=== PATIENT | male | born 1950 | race Caucasian/White ===

== ENCOUNTER 2018-03-26 17:34 | Inpatient (IN) | payer MEDICARE, OTHER ==
[~2018-03-26] VITALS: Ht 167.6 cm; Wt 78.0 kg
--- NOTE | 2018-03-26 17:48 | NUR ---
PT TO ED DT LFT GREAT TOE OPEN WOUND X 2 WEEKS, PATIENT IS COMPLAINIGN OF 8/10 PAIN.PATIENT IS AFEBRILE.VSS
--- NOTE | 2018-03-26 17:52 | NUR ---
CALLED "[facility]" AND SPOKE WITH ZAIDA. PER ZAIDA DAVISON SAW PATIENT AND IS UNABLE TO PROVIDE MORE INFORMATION. SHE SAID SHE WILL TRY TO REACH DR DAVISON FOR A CALL BACK BUT HE IS NOT CURRENTLY AVAILABLE.
[2018-03-26 18:10] LABS: BASOPHILS # (AUTO) 0.1 /CMM (0.0-0.2); BASOPHILS % (AUTO) 0.7 % (0.0-2.0); EOSINOPHILS % (AUTO) 1.2 % (0.0-6.0); HEMATOCRIT 43 % (39-51); HEMOGLOBIN 14.7 g/dL (13.5-17.5); LYMPHOCYTES # (AUTO) 4.2 /CMM (0.8-4.8); LYMPHOCYTES % (AUTO) 35.2 % (20.0-44.0); MEAN CORPUSCULAR HEMOGLOBIN 30 PG (26.0-33.0); MEAN CORPUSCULAR HGB CONC 34 g/dl (31.0-36.0); MEAN CORPUSCULAR VOLUME 89 fL (80-96); MONOCYTES # (AUTO) 0.6 /CMM (0.1-1.30); MONOCYTES % (AUTO) 4.7 % (2.0-12.0); NEUTROPHILS # (AUTO) 6.9 /CMM (1.8-8.9); NEUTROPHILS % (AUTO) 58.2 % (43.0-81.0); PLATELET COUNT (AUTO) 188 /CMM (150-450); RDW COEFFICIENT OF VARIATION 13.9 (11.5-15.0); RED BLOOD CELL COUNT(AUTO) 4.89 MIL/uL (4.5-6.0); WHITE BLOOD COUNT (AUTO) 11.9 K/uL (4.3-11.0)
[2018-03-26 18:29] LABS: CALCIUM, SERUM 8.6 mg/dL (8.5-10.1); CREATININE 0.8 mg/dL (0.6-1.3); POTASSIUM 3.6 mmol/L (3.5-5.1)
[2018-03-26] MEDS ORDERED: PIPERACILLIN /TAZOBACTAM 3.375 G in IV D5W 50 ML IV ONE (18:30)
[2018-03-26] MEDS ORDERED: VANCOMYCIN 1 GM in IV D5W 250 ML IV ONE (18:30)
[2018-03-26 18:34] LABS: INR 0.88 (0.85-1.15)
[2018-03-26 18:35] LABS: ALBUMIN 3.4 g/dL (3.4-5.0); BILIRUBIN,DIRECT 0.1 mg/dL (0.0-0.2); BILIRUBIN,TOTAL 0.4 mg/dL (0.2-1.0); TOTAL PROTEIN, SERUM 6.5 g/dL (6.4-8.2)
[2018-03-26] MEDS ORDERED: MORPHINE SULFATE INJ 4 MG/ML DISP.SYRIN ONE (19:00)
[2018-03-26] MEDS ORDERED: MORPHINE SULFATE INJ 2 MG/ML DISP.SYRIN IV ONE (19:00)
--- NOTE | 2018-03-26 19:15 | NUR ---
REPORT RECEIVED FROM YOLETTE DOWNEY FOR GARRY. AWAITING BED ASSIGNMENT FOR TRANSFER TO FLOOR
[2018-03-26] MEDS ORDERED: IV NS 0.9% 1,000 ML IV PRN (19:52)
[2018-03-26] MEDS ORDERED: ONDANSETRON HCL/PF 4 MG/2 ML VIAL IVP PRN (20:00)
[2018-03-26] MEDS ORDERED: HYDROCODONE/APAP 5/325MG 1 EACH TABLET PO PRN (20:00)
[2018-03-26] MEDS ORDERED: MAG HYDROX/AL HYDROX/SIMETH 30 ML UDC PO PRN (20:00)
[2018-03-26] MEDS ORDERED: Z GUARD REMEDY 2 OZ OINT TP PRN (20:00)
[2018-03-26] MEDS ORDERED: ACETAMINOPHEN 325 MG TABLET PO PRN (20:00)
[2018-03-26] MEDS ORDERED: MAGNESIUM HYDROXIDE 30 ML UDC PO PRN (20:00)
--- NOTE | 2018-03-26 20:19 | NUR ---
REPORT GIVEN TO CHRISTINE/RN ON BEHALF OF PRIMARY NURSE LUZ MARINA. TO BE TRANSFERED TO FLOOR.
--- NOTE | 2018-03-26 20:23 | NUR ---
MS2/RN RECEIVE PATIENT FROM E.. [facility]IA [facility]. PATIENT IS AWAKE, ALERT, ORIENTED, COMFORTABLE, NO C/O PAIN AT THIS TIME, NO DISTRESS NOTED, ADMISSION DONE PER PROTOCOL, PATIENT REFUSED PHYSICAL ASSESSMENT, PATIENT ALSO REFUSED PHOTO ON WOUND IN LEFT FOOT BIG TOE. PLAN OF CARE DISCUSSED WITH THE PATIENT, VERBALIZED UNDERSTANDING AND AGREEMENT, TAUGHT THE USE OF CALL LIGHT AND PLACED IT AT BEDSIDE WITHIN REACH. WILL MONITOR.
[2018-03-26 20:30] VITALS: BP 127/74
[2018-03-26] MEDS ORDERED: FEE PK DOSING 1 MIN EA MC ONE (20:40)
[2018-03-26 21:00] VITALS: BP 127/74
[2018-03-26] MEDS: ENOXAPARIN SODIUM 40 MG/0.4 ML DISP.SYRIN SQ SCH (21:43)
--- NOTE | 2018-03-26 22:04 | NUR ---
MS2/RN PER PATIENT HE IS DIABETIC, ACCU CHECK WAS DONE, BLOOD SUGAR 201, NO ACCU CHECK ORDERED. MADE A CALL TO [employer] FOR ORDER, LEFT MESSAGE.
--- NOTE | 2018-03-26 22:12 | NUR ---
MS2/RN JIM RON NP, CALLED BACK. PER JIM SHE WILL ENTER ACCU CHECK ORDER.
[2018-03-26] MEDS ORDERED: DEXTROSE 50%-WATER 50 ML DISP.SYRIN IV PRN (22:30)
[2018-03-26] MEDS: INSULIN REGULAR, HUMAN 100 UNIT/ML 3 ML VIAL SQ PRN (22:38)
[2018-03-26] MEDS: BLOOD SUGAR DIAGNOSTIC 1 EACH STRIP IN SCH (22:40)
[2018-03-26] MEDS: HYDROCODONE/APAP 10/325MG 1 EA TABLET PO PRN (22:59)
[2018-03-27] MEDS: PIPERACILLIN /TAZOBACTAM 3.375 G in IV D5W 50 ML IV SCH ×4 (00:09→17:17)
[2018-03-27] MEDS: HYDROCODONE/APAP 10/325MG 1 EA TABLET PO PRN ×3 (03:31→21:33)
--- NOTE | 2018-03-27 06:29 | NUR ---
MS2/RN PATIENT IS AWAKE, ACCU CHECK WAS DONE, BLOOD SUGAR 134, PATIENT REFUSED INSULIN COVERAGE PER SLIDING SCALE. ALL NEEDS ATTENDED AT THIS TIME. WILL CONTINUE TO MONITOR.
[2018-03-27] MEDS: BLOOD SUGAR DIAGNOSTIC 1 EACH STRIP IN SCH ×4 (06:38→21:36)
[2018-03-27] MEDS ORDERED: CARV25TA2 PO (07:20)
[2018-03-27] MEDS ORDERED: CILO50TA PO (07:20)
[2018-03-27] MEDS ORDERED: SITA100T PO (07:20)
[2018-03-27] MEDS ORDERED: METF-442 PO (07:20)
[2018-03-27] MEDS ORDERED: LINA5TAB PO (07:20)
[2018-03-27] MEDS ORDERED: RANI300C PO (07:20)
[2018-03-27] MEDS ORDERED: PANT40TA4 PO (07:20)
[2018-03-27] MEDS ORDERED: CYCL5TAB PO (07:20)
[2018-03-27] MEDS ORDERED: HYDR12.5 PO (07:20)
[2018-03-27] MEDS ORDERED: HYDR100T27 PO (07:20)
[2018-03-27] MEDS ORDERED: ATOR40TA PO (07:20)
[2018-03-27] MEDS ORDERED: AMLO10TA6 PO (07:20)
[2018-03-27] MEDS ORDERED: LISI40TA4 PO (07:20)
[2018-03-27] MEDS ORDERED: GABA-532 PO (07:20)
[2018-03-27] MEDS ORDERED: NORT10CA PO (07:20)
[2018-03-27] MEDS ORDERED: CLOP75TA15 PO (07:20)
[2018-03-27] MEDS ORDERED: PANTOPRAZOLE 40 MG TABLET.DR PO SCH (07:30)
--- NOTE | 2018-03-27 07:50 | NUR ---
MS RN NOTES PATIENT RECEIVED RESTING INSIDE ROOM. AWAKE, ALERT AND ORIENTED X 4. VERBALLY RESPONSIVE AND RESPONDS TO VERBAL AND TACTILE STIMULI. BREATHING EVEN AND UNLABORED. NO SOB OR ACUTE DISTRESS NOTED. PATIENT CALM AND RELAXED. DENIES ANY PAIN AT THIS TIME. DRESSING ON LEFT GREAT TOE NOTED BUT PATIENT VERBALIZED HE WANTS TO REMOVE IT AND DOES NOT WANT DRESSING IN PLACE. ALSO ASKED PATIENT IF PICTURE OF LEFT GREAT TOE MAY BE TAKEN BUT PATIENT REFUSED. RISKS AND BENEFITS EXPLAINED BUT TO NO AVAIL, OFFERED X 3 BUT PATIENT STRONGLY REFUSED. WILL CONTINUE TO MONITOR
[2018-03-27 08:00] VITALS: BP 129/74
[2018-03-27] MEDS ORDERED: VANCOMYCIN 1 GM in IV D5W 250 ML IV SCH (08:00)
[2018-03-27 08:02] LABS: CALCIUM, SERUM 8.2 mg/dL (8.5-10.1); CREATININE 0.8 mg/dL (0.6-1.3); MAGNESIUM 1.6 mg/dL (1.8-2.4); PHOSPHORUS 3.9 mg/dL (2.5-4.9); POTASSIUM 3.7 mmol/L (3.5-5.1)
[2018-03-27 08:07] LABS: BASOPHILS # (AUTO) 0.1 /CMM (0.0-0.2); BASOPHILS % (AUTO) 0.9 % (0.0-2.0); EOSINOPHILS % (AUTO) 1.3 % (0.0-6.0); HEMATOCRIT 40 % (39-51); HEMOGLOBIN 13.4 g/dL (13.5-17.5); LYMPHOCYTES % (AUTO) 38.1 % (20.0-44.0); MEAN CORPUSCULAR HEMOGLOBIN 30 PG (26.0-33.0); MEAN CORPUSCULAR HGB CONC 34 g/dl (31.0-36.0); MEAN CORPUSCULAR VOLUME 88 fL (80-96); MONOCYTES # (AUTO) 0.5 /CMM (0.1-1.30); MONOCYTES % (AUTO) 4.5 % (2.0-12.0); NEUTROPHILS # (AUTO) 5.8 /CMM (1.8-8.9); NEUTROPHILS % (AUTO) 55.2 % (43.0-81.0); PLATELET COUNT (AUTO) 164 /CMM (150-450); RDW COEFFICIENT OF VARIATION 14.1 (11.5-15.0); RED BLOOD CELL COUNT(AUTO) 4.51 MIL/uL (4.5-6.0); WHITE BLOOD COUNT (AUTO) 10.5 K/uL (4.3-11.0)
[2018-03-27 08:12] LABS: THYROID STIMULATING HORMONE 4.183 uIU/mL (0.358-3.74)
[2018-03-27] MEDS: DOCUSATE SODIUM 100 MG CAPSULE PO SCH ×2 (08:12→17:13)
[2018-03-27] MEDS: PANTOPRAZOLE 40 MG TABLET.DR PO SCH (08:30)
[2018-03-27] MEDS: ATORVASTATIN 40 MG TABLET PO SCH ×2 (08:30→21:28)
[2018-03-27] MEDS: NORTRIPTYLINE HCL 10 MG CAPSULE PO SCH ×2 (08:30→17:13)
[2018-03-27] MEDS ORDERED: Medication Not On Formulary EA (Sitagliptin Phosphate (Januvia) 100 MG) PO SCH (09:00)
[2018-03-27] MEDS ORDERED: CILOSTAZOL 50 MG TABLET PO SCH (09:00)
[2018-03-27] MEDS: HYDROCHLOROTHIAZIDE 25 MG TABLET PO SCH (09:13)
[2018-03-27] MEDS: LISINOPRIL (20MG) 20 MG TABLET PO SCH (09:13)
[2018-03-27] MEDS: AMLODIPINE BESYLATE 10 MG TABLET PO SCH (09:14)
[2018-03-27] MEDS: CYCLOBENZAPRINE 10 MG TABLET PO SCH (09:14)
[2018-03-27] MEDS: FAMOTIDINE (20 MG) 20 MG TABLET PO SCH (09:14)
[2018-03-27] MEDS: CARVEDILOL 12.5 MG TABLET PO SCH ×2 (09:14→21:00)
[2018-03-27] MEDS: CLOPIDOGREL BISULFATE 75 MG TABLET PO SCH (09:14)
[2018-03-27] MEDS: LINAGLIPTIN 5 MG TABLET PO SCH (09:14)
[2018-03-27] MEDS: hydrALAZINE HCL 50 MG TABLET PO SCH ×2 (09:14→17:13)
[2018-03-27] MEDS: METFORMIN 500 MG TABLET PO SCH ×2 (09:15→17:13)
[2018-03-27] MEDS: GABAPENTIN 100 MG CAPSULE PO SCH ×3 (09:15→17:13)
--- NOTE | 2018-03-27 09:30 | NUR ---
MS RN NOTES MEDICATION PLETAL NOT AVAILABLE IN [facility], PHARMACY MADE AWARE
--- NOTE | 2018-03-27 10:00 | NUR ---
MS RN NOTES PATIENT SEEN AND EXAMINED BY DR. MCKEON. PATIENT INFORMED DR. MCKEON THAT PATIENT IS SCHEDULED FOR ANGIOGRAM ON 03/30/18. WITH NEW ORDER FROM DR. MCKEON TO CHANGE DIET ORDER FROM REGULAR TO CCHO. ORDER NOTED AND CARRIED OUT. FNS MADE AWARE. PATIENT MADE AWARE AND VERBALIZED UNDERSTANDING. WILL CONTINUE TO MONITOR
[2018-03-27] MEDS: Magnesium 1GM/D5W 100ML PREMIX 100 ML IV SCH ×2 (11:13→14:08)
[2018-03-27] MEDS: INSULIN REGULAR, HUMAN 100 UNIT/ML 3 ML VIAL SQ PRN ×3 (12:44→22:09)
[2018-03-27 16:00] VITALS: BP 116/61
[2018-03-27] MEDS: LACTOBACILLUS RHAMNOSUS GG 1 EACH CAP.SPRINK PO SCH (17:13)
[2018-03-27] MEDS: CILOSTAZOL 100 MG TABLET PO SCH (17:15)
--- NOTE | 2018-03-27 19:30 | NUR ---
MS RN NOTES RECEIVED AWAKE,SITTING ON BEDSIDE CHAIR,A/O X4,AMBULATORY,SALINE LOCK RIGHT AC INTACT AND PATENT.LISSY DISCOMFORTS AT THE MOMENT.CALL LIGHT IN REACH,NEEDS ANTICIPATED.
--- NOTE | 2018-03-27 19:34 | NUR ---
MS RN NOTES PATIENT RESTING INSIDE ROOM. SLEEPING, EASILY AROUSABLE THROUGH VERBAL AND TACTILE STIMULI. BREATHING EVEN AND UNLABORED. NO SOB OR ACUTE DISTRESS AT THIS TIME. DENIES ANY PAIN OR DISCOMFORT. NO CHANGES IN LOC NOTED. PATIENT CALM AND RELAXED. IV INTACT AND PATENT. ASKED PATIENT AGAIN IF HE WOULD ALLOW STAFF TO TAKE PICTURE OF HIS LEFT GREAT TOE BUT PATIENT STILL REFUSES. RESPECTED PATIENT RIGHTS. ENDORSED TO INCOMING SHIFT FOR GARRY. BED LOCKED AND IN LOW POSITION. BILATERAL UPPER SIDE RAILS UP AND LOCKED. CALL LIGHT WITHIN EASY REACH
[2018-03-27 20:00] VITALS: BP 140/70
--- NOTE | 2018-03-27 20:00 | NUR ---
MS RN NOTES WENT DOWN TO SMOKE ACCOMPANIED BY LANDON GRAMAJO,WAIVER FOR SMOKING SIGNED ON CHART.
[2018-03-27] MEDS: DOXYCYCLINE HYCLATE (100 MG) 100 MG TABLET PO SCH (21:28)
[2018-03-27] MEDS: ENOXAPARIN SODIUM 40 MG/0.4 ML DISP.SYRIN SQ SCH (21:29)
--- NOTE | 2018-03-27 21:33 | NUR ---
MS RN NOTES C/O PAIN 8/10 ON PAIN SCALE VIA LEFT FOOT BIG TOE.MEDICATED WITH NORCO 10/325MG,1 TAB PO ORDERED.
--- NOTE | 2018-03-27 22:00 | NUR ---
MS RN NOTES REFUSED TO HAVE IV FLUIDS.
--- NOTE | 2018-03-27 22:00 | NUR ---
MS RN NOTES ACCU-CHECK BLOOD SUGAR CHECK 146,REFUSED INSULIN 2 UNITS COVERAGE PER SLIDING SCALE.
[2018-03-28] MEDS: HYDROCODONE/APAP 10/325MG 1 EA TABLET PO PRN ×3 (03:54→12:29)
--- NOTE | 2018-03-28 03:54 | NUR ---
MS RN NOTES PAIN MANAGEMENT C/O PAIN VIA LEFT GREAT TOE.MEDICATED WITH NORCO 10/325MG,1 TAB PO ORDERED FOR PAIN SCALE 8/10.
--- NOTE | 2018-03-28 06:30 | NUR ---
MS RN NOTES ACCU-CHECK BLOOD SUGAR CHECK 186,REFUSED INSULIN COVERAGE.
[2018-03-28] MEDS: BLOOD SUGAR DIAGNOSTIC 1 EACH STRIP IN SCH ×2 (06:33→11:49)
[2018-03-28] MEDS: INSULIN REGULAR, HUMAN 100 UNIT/ML 3 ML VIAL SQ PRN (06:39)
--- NOTE | 2018-03-28 07:11 | NUR ---
MS RN NOTES A/O X4,SITTING ON BEDSIDE CHAIR.NON COMPLIANT WITH CARE AND MEDS,LEFT FOOT BIG TOE EXPOSED TO AIR.IN NO ACUTE DISTRESS.ENDORSE TO JERILYN DOWNEY FOR GARRY.
--- NOTE | 2018-03-28 07:20 | NUR ---
MS RN NOTES PATIENT RECEIVED RESTING INSIDE ROOM. AWAKE, ALERT AND ORIENTED, VERBALLY RESPONSIVE AND RESPONDS TO VERBAL AND TACTILE STIMULI. BREATHING EVEN AND UNLABORED. NO SOB OR ACUTE DISTRESS AT THIS TIME. PATIENT CALM AND RELAXED. NO CHANGES IN LOC NOTED AT THIS TIME. DENIES ANY PAIN OR DISCOMFORT. IV INTACT AND PATENT. RECEIVED ENDORSEMENT FROM PREVIOUS SHIFT THAT PATIENT REFUSED INSULIN ADMINISTRATION, OFFERED PATIENT INSULIN BUT REFUSED, RISKS AND BENEFITS EXPLAINED BUT TO NO AVAIL. WILL CONTINUE TO MONITOR. BED LOCKED AND IN LOW POSITION. BILATERAL UPPER SIDE RAILS UP AND LOCKED. CALL LIGHT WITHIN EASY REACH
[2018-03-28 07:37] LABS: CALCIUM, SERUM 8.7 mg/dL (8.5-10.1); CREATININE 0.8 mg/dL (0.6-1.3); MAGNESIUM 1.8 mg/dL (1.8-2.4); POTASSIUM 3.7 mmol/L (3.5-5.1)
[2018-03-28 08:00] VITALS: BP 104/56
[2018-03-28] MEDS: PANTOPRAZOLE 40 MG TABLET.DR PO SCH (08:14)
[2018-03-28] MEDS: DOXYCYCLINE HYCLATE (100 MG) 100 MG TABLET PO SCH (08:14)
[2018-03-28] MEDS: CYCLOBENZAPRINE 10 MG TABLET PO SCH (08:14)
[2018-03-28] MEDS: LACTOBACILLUS RHAMNOSUS GG 1 EACH CAP.SPRINK PO SCH (08:14)
[2018-03-28] MEDS: FAMOTIDINE (20 MG) 20 MG TABLET PO SCH (08:15)
[2018-03-28] MEDS: LINAGLIPTIN 5 MG TABLET PO SCH (08:15)
[2018-03-28] MEDS: METFORMIN 500 MG TABLET PO SCH (08:15)
[2018-03-28] MEDS: DOCUSATE SODIUM 100 MG CAPSULE PO SCH (08:15)
[2018-03-28] MEDS: GABAPENTIN 100 MG CAPSULE PO SCH ×2 (08:15→12:23)
[2018-03-28] MEDS: CILOSTAZOL 100 MG TABLET PO SCH (08:16)
[2018-03-28] MEDS: hydrALAZINE HCL 50 MG TABLET PO SCH (08:19)
[2018-03-28 08:20] VITALS: BP 104/56
[2018-03-28] MEDS: AMLODIPINE BESYLATE 10 MG TABLET PO SCH (08:20)
[2018-03-28] MEDS: CARVEDILOL 12.5 MG TABLET PO SCH (08:20)
[2018-03-28] MEDS: LISINOPRIL (20MG) 20 MG TABLET PO SCH (08:20)
[2018-03-28] MEDS: HYDROCHLOROTHIAZIDE 25 MG TABLET PO SCH (08:20)
[2018-03-28] MEDS: CLOPIDOGREL BISULFATE 75 MG TABLET PO SCH (09:02)
--- NOTE | 2018-03-28 11:53 | NUR ---
MS RN NOTES PATIENT SEEN AND EXAMINED BY DR. MCKEON. WITH ORDER TO DISCAHRGE PATIENT HOME, PATIENT TO FOLLOW-UP WITH ANGIOGRAM ON MONDAY AT [facility]. PATIENT AWARE AND VERBALIZED UNDERSTANDING. OFFERED TO TAKE PICTURES OF LEFT GREAT TOE WOUND BUT PATIENT REFUSED. RISKS AND BENEFITS EXPLAINED BUT TO NO AVAIL. WILL CONTINUE TO MONITOR
--- NOTE | 2018-03-28 12:55 | NUR ---
MS RN NOTES PATIENT EARLIER ASKED FOR PAIN MEDICATION BUT REFUSED TO TAKE IT DURING ADMINISTRATION HE DOESNT WANT TO WAIT ANYMORE AND WANTS TO LEAVE DENIS. NORCO ALREADY OBTAINED FROM [facility], WASTED AND WITNESSED BY Lori ZAMARRIPA RN.
--- NOTE | 2018-03-28 13:09 | NUR ---
MS RN NOTES PATIENT FOR DISCHARGE HOME TODAY. DISCHARGE INSTRUCTIONS AND EDUCATION PROVIDED TO PATIENT AND VERBALIZED UNDERSTANDING. REMINDED PATIENT REGARDING ANGIOGRAM FOR 03/30/18 AT [facility] AND VERBALIZED UNDERSTANDING. ALL BELONGINGS COMPLETE ON DISCHARGE, NO REPORT OF MISSING INVENTORY. IV REMOVED WITH MINIMAL BLEEDING NOTED. PATIENT ASSISTED OUTSIDE OF HOSPITAL. LEFT VIA WHEELCHAIR AT 1300. LEFT IN STABLE CONDITION. BREATHING EVEN AND UNLABORED. NO SOB OR ACUTE DISTRESS NOTED. NO CHANGES IN LOC. LEFT VIA PRIVATE CAR WITH FAMILY. MD AWARE OF DISCHARGE.
== END 2018-03-28 12:30 | disposition home or self-care (01) | DRG 300 ==
LOC: ER 17:35 → MEDSG2 20:17
PROVIDERS: ADMIT Registered Nurse; ATTEND Registered Nurse
DX: E11.52 Type 2 diabetes mellitus with diabetic peripheral angiopathy with gangrene (principal); L03.032 Cellulitis of left toe; E11.65 Type 2 diabetes mellitus with hyperglycemia; D72.829 Elevated white blood cell count, unspecified; I10 Essential (primary) hypertension; I25.10 Atherosclerotic heart disease of native coronary artery without angina pectoris; F17.200 Nicotine dependence, unspecified, uncomplicated; E11.40 Type 2 diabetes mellitus with diabetic neuropathy, unspecified; E66.9 Obesity, unspecified; Q84.3 Anonychia; Z68.27 Body mass index [BMI] 27.0-27.9, adult; Z79.84 Long term (current) use of oral hypoglycemic drugs
CPT/HCPCS: 36415; 71045-TC; 73660-TC; 80048-TC; 80061-TC; 80076-TC; 82962-TC; 83540-TC; 83605-TC; 83735-TC; 84100-TC; 84443-TC; 85025-TC; 85730-TC; 87040-TC; 87081-TC; A4606; J1650; J1815; J2270; J2543; J3370; J3475; J7030; J7060; Z7610